=== PATIENT | female | born 2000 | race Two or more races ===

== ENCOUNTER 2020-09-25 07:00 | Day surgery (SDC) | payer OTHER ==
[~2020-09-25 07:00] MED LIST: MAX FE PO; SINGULAIR10 MG PO; VITAMIN C PO; [UNRECOGNIZED DRUG - OTHER]
[2020-09-25] MEDS ORDERED: PERCOCET 5-3251 EACH PO (12:39)
== END 2020-09-25 17:00 | disposition home or self-care (01) ==
LOC: CIR.AMB 07:00
PROVIDERS: ATTEND Obstetrics & Gynecology Gynecology
DX: D27.1 Benign neoplasm of left ovary (principal); Z20.822 Contact with and (suspected) exposure to COVID-19